=== PATIENT | male | born 1985 | race Caucasian/White ===

== ENCOUNTER 2016-12-07 22:06 | Emergency (ER) | payer SELFPAY ==
[2016-12-07 22:44] LABS: BASOPHIL % 0.3 % (0-2); PLATELET COUNT 224 x10^3mcL (130-400); RED CELL DISTRIBUTION WIDTH 13.3 % (11.5-14.5)
[2016-12-07 22:48] LABS: CALCIUM 8.9 mg/dL (8.5-10.1); CARBON DIOXIDE 31.2 mmol/L (21-32); CHLORIDE SERUM 101 mmol/L (98-107); CREATININE SERUM 1.1 mg/dL (0.7-1.3); GFR1 > 60 mL/min; GLUCOSE SERUM 175 mg/dL (74-106); POTASSIUM SERUM 3.2 mmol/L (3.5-5.1); SODIUM SERUM 140 mmol/L (136-145)
[2016-12-07 22:52] LABS: ALBUMIN 3.8 g/dL (3.4-5.0); ALKALINE PHOSPHATASE 219 U/L (46-116); ALT/SGPT 596 U/L (16-63); AMYLASE 70 U/L (25-115); AST/SGOT 256 U/L (15-37); BILIRUBIN TOTAL 2.4 mg/dL (0.20-1.00); LIPASE 147 IU/L (73-393); TOTAL PROTEIN, SERUM 7.8 g/dL (6.4-8.2)
[2016-12-08 03:30] VITALS: BP 123/67
== END 2016-12-08 03:30 | disposition short-term general hospital (02) ==
LOC: ED 22:06
PROVIDERS: Emergency Medicine
DX: K81.0 Acute cholecystitis (principal); R73.9 Hyperglycemia, unspecified; R74.8 Abnormal levels of other serum enzymes
CPT/HCPCS: 83880; J0295; J1885; J2270; J2405; J2543; J3490; J7030; Q0092